=== PATIENT | female | born 1995 | race African-American/Black ===

== ENCOUNTER 2021-10-27 07:43 | Emergency (ER) | payer OTHER ==
[2021-10-27] MEDS ORDERED: Ketorolac Tromethamine 30 MG/ML VIAL ONE (08:49)
== END 2021-10-27 09:25 | disposition home or self-care (01) ==
LOC: CSHERS 07:43
DX: S13.4XXA Sprain of ligaments of cervical spine, initial encounter (principal); S16.1XXA Strain of muscle, fascia and tendon at neck level, initial encounter; J45.909 Unspecified asthma, uncomplicated; V89.2XXA Person injured in unspecified motor-vehicle accident, traffic, initial encounter
CPT/HCPCS: 72040; 96372; J1885